=== PATIENT | female | born 1985 | race Caucasian/White ===

== ENCOUNTER 2022-12-14 19:38 | Emergency (ER) | payer MEDICAID ==
[~2022-12-14] VITALS: Ht 167.6 cm; Wt 111.8 kg
[2022-12-14 20:35] VITALS: BP 140/88
[2022-12-14] MEDS ORDERED: fluconazole 150mg tablet PO ONE (21:10)
[2022-12-14] MEDS ORDERED: amox tr/potassium clavulanate 875/125mg TAB PO ONE (21:10)
[2022-12-14] MEDS ORDERED: DIF150T PO (21:13)
[2022-12-14] MEDS ORDERED: AMOX-580 PO (21:13)
== END 2022-12-14 21:25 | disposition home or self-care (01) ==
LOC: ER 19:39
DX: B37.0 Candidal stomatitis (principal); J20.9 Acute bronchitis, unspecified; Z88.2 Allergy status to sulfonamides
CPT/HCPCS: 99283

== ENCOUNTER 2024-08-11 01:12 | Emergency (ER) | payer MEDICAID ==
[~2024-08-11] VITALS: Ht 167.6 cm; Wt 109.5 kg
[2024-08-11 02:33] VITALS: TEMP 98.1
[2024-08-11] MEDS: ondansetron 4mg rapidly disintigrating tab PO STA (03:03)
[2024-08-11] MEDS: ketorolac trometh 15mg/ml vial 15 MG/ML ML IM ONE (03:04)
[2024-08-11] MEDS: oxyCODONE IR 5mg (immed. release) tablet PO ONE (03:04)
[2024-08-11 03:10] VITALS: BP 128/91; PULSE 71; RESP 20; O2SAT 99
== END 2024-08-11 03:12 | disposition home or self-care (01) ==
LOC: ER 01:13
DX: K64.9 Unspecified hemorrhoids (principal); Z88.2 Allergy status to sulfonamides
CPT/HCPCS: 96372; 99283; J1885

== ENCOUNTER 2024-10-25 16:35 | Emergency (ER) | payer BC, MEDICAID ==
[~2024-10-25] VITALS: Ht 170.2 cm; Wt 103.0 kg
--- NOTE | 2024-10-25 17:44 | Physician Documentation ---
History of Present Illness General Chief Complaint: Foreign body Stated Complaint: CONDOM STUCK INSIDE Time Seen by MD: 16:43 Primary Medical Doctor: CAL CASE History of Present Illness Initial Comments 39-year-old female presents to the emergency department with concerns of having a condom lodged in her vagina. Reports similar episode one week ago. Reports with a continence get lodged due to her retro threaded cervix. Condom has been displaced for approximately 2 hours. Medication Reconciliation Allergies: Coded Allergies: Sulfa (Sulfonamide Antibiotics) (Verified Allergy, Unknown, 12/14/22) cefaclor (Unverified Allergy, Unknown, 10/25/24) sulfamethoxazole (Verified Allergy, Unknown, 12/14/22) trimethoprim (Verified Allergy, Unknown, 12/14/22) Past Medical History Last Menstrual Period: Oct 14, 2024 Review of Systems All Other Systems at this time: Reviewed and Negative Constitutional: Denies: fever, chills Physical Exam Physical Exam Vital Signs: RN Vital Signs have been reviewed: Yes, Temperature: 98.0, Source: Temporal, Heart Rate: 92, Respiratory Rate: 16, BP: 146/86, Pulse Oximetry: 98, Weight: 103.000 Oxygen Flow Rate: 0 General Appearance: alert, WD/WN Head: normal inspection Face: normal inspection Pupils/EOM/Fundus: PERRLA Respiratory: no respiratory distress Chest: no accessory muscle use Gastrointestinal : External exam unremarkable. Internal without lesions, lacerations. Single condom noted. Extremities: normal range of motion Neurologic: oriented x4 Psychiatric: normal mood/affect Skin: normal color Progress Results/Orders Results/Orders Vital Signs 10/25/24 16:37 Temp 98.0 Pulse 92 Resp 16 B/P (MAP) 146/86 Pulse Ox 98 O2 Flow Rate 0 Medical Decision Making Differential Diagnosis Introduce myself as David Batron physician legal support assistant. With management development specialist attending speculum exam performed with ring forceps single continent was removed. Patient tolerated procedure well was discharged accordingly. Departure Disposition: HOME / SELF CARE / HOMELESS Impression: Primary Impression: Foreign body in vagina Qualified Codes: T19.2XXA - Foreign body in vulva and vagina, initial encounter Condition: Improved Discharge Instructions: Foreign Body, Vaginal Referrals: NO PRIMARY CARE PROVIDER (PCP) Education Educated: Patient Educated regarding: diagnosis, treatment Signature Scribe Signature: . Attestation: DAVID TOMPKINS PAC October 25, 2024 17:44
[2024-10-25 18:25] VITALS: BP 120/68; PULSE 77; RESP 18; TEMP 98; O2SAT 100
== END 2024-10-25 18:27 | disposition home or self-care (01) ==
LOC: ER 16:36
DX: T19.2XXA Foreign body in vulva and vagina, initial encounter (principal); Z88.1 Allergy status to other antibiotic agents; Z88.2 Allergy status to sulfonamides; W44.8XXA Other foreign body entering into or through a natural orifice, initial encounter; Y93.89 Activity, other specified; Y92.89 Other specified places as the place of occurrence of the external cause; Y99.8 Other external cause status
CPT/HCPCS: 99284; A6449